=== PATIENT | female | born 1945 | race Caucasian/White ===

== ENCOUNTER 2017-02-14 12:58 | Emergency (ER) | payer MEDICARE, MEDICAID ==
--- NOTE | 2017-02-14 14:47 | PD ---
HPI . s/p fall and left lateral eye laceration Chief Complaint: Laceration/Skin Injury Time Seen by Provider: 13:50 Travel History International Travel<30 days: No Contact w/Intl Traveler<30days: No Traveled to known affect area: No History of Present Illness HPI 72-year-old female here status post fall earlier today at her senior living resident. She is past medical history significant for major depressive disorder , hypertension, COPD, dementia and history of stroke. According to the senior living notes patient was returning from [place] in a wheelchair and lean forward to pick an object off the floor when she fell forward. She hit her head sustaining a laceration above her left eye Steri-Strips were placed at the senior living. She was complaining about headache and sent to the emergency department for further evaluation. Patient tells me she was trying to open up her foot rests on the chair and slipped forward. She says there was a woman who was pushing her and she kept slipping forward, but the woman just kept pushing the wheelchair. Upon examining the patient she tells me that she no longer has a headache, but that she had one and it was earlier. She does have some tenderness near the laceration. She has no other pain. She denies any LOC. PFSH Social History Tobacco Use: No Allergies-Medications (Allergen,Severity, Reaction): Coded Allergies: No Known Allergies (Unverified , 02/14/17) Review of Systems General / Constitutional: No: Fever Eyes: No: Visual changes HENT: Positive: Headaches Cardiovascular: No: Chest Pain or Discomfort Respiratory: No: Shortness of Breath Gastrointestinal: No: Abdominal Pain Genitourinary: No: Dysuria Musculoskeletal: No: Pain Skin: Positive Other (laceration left lateral to eye), No Rash Neurologic: No: Weakness Psychiatric: No: Depression Endocrine: No: Polydipsia Hematologic/Lymphatic: No: Easy Bruising Physical Exam Narrative GENERAL: AAO x 3, no acute distress, Well-nourished, well-developed patient. SKIN: Warm and dry. No visible rashes or bruising. small superficial laceration lateral to left eye. about 4 mm HEAD: Normocephalic and atraumatic. EYES: No scleral icterus. No injection or drainage. EOM intact, PERRLA ENT: No nasal drainage noted. Mucous membranes pink. Airway patent. NECK: Supple, trachea midline. No JVD. CARDIOVASCULAR: Regular rate and rhythm without murmurs, gallops, or rubs. RESPIRATORY: Breath sounds equal bilaterally. No accessory muscle use. No rhonchi or rales. GASTROINTESTINAL: Abdomen soft, non-tender, nondistended. EXTREMITIES: No cyanosis or edema. decreased [employer] strength on left side. BACK: Nontender without obvious deformity. No CVA tenderness. PSYCH: AAO x 3, MDM Medical Decision Making Medical Screen Exam Complete: Yes Emergency Medical Condition: Yes Medical Record Reviewed: Yes Differential Diagnosis laceration, fall, syncope, head injury Narrative Course 72-year-old female here status post fall earlier today at her senior living resident. She is past medical history significant for major depressive disorder , hypertension, COPD, dementia and history of stroke. According to the senior living notes patient was returning from [place] in a wheelchair and lean forward to pick an object off the floor when she fell forward. She hit her head sustaining a laceration above her left eye Steri-Strips were placed at the senior living. She was complaining about headache and sent to the emergency department for further evaluation. Patient tells me she was trying to open up her foot rests on the chair and slipped forward. She says there was a woman who was pushing her and she kept slipping forward, but the woman just kept pushing the wheelchair. Upon examining the patient she tells me that she no longer has a headache, but that she had one and it was earlier. She does have some tenderness near the laceration. She has no other pain. She denies any LOC. Patient seen and examined. She does have a significant fall to the floor. There is some ecchymosis to the left lateral orbit. I've requested a medical bed and transfer. I repaired her laceration with a Steri-Strip. She will need CT scan of orbit to r/o fracture and also head as she hit it on the way down. tetanus ordered. Her disposition will be determined by the next provider. Procedures Procedure Narrative LACERATION LOCATION: face lateral to left eye LENGTH: 4 mm NUMBER OF STITCHES/BRITNEY: steri strip REPAIR: The area of the laceration was prepped with Betadine and sterilely draped. The wound was copiously irrigated and explored without evidence of foreign body, tendon injury or neurovascular injury. The wound was closed using a steri strip. This was a single layer repair. A sterile dressing was applied. The patient was advised to keep the dressing clean and dry. Patient tolerated the procedure well. Diagnosis Primary Impression: Fall Qualified Code: W19.XXXA - Fall, initial encounter Additional Impression: Laceration of face Qualified Code: S01.81XA - Laceration of face, initial encounter Additional Instructions: Keep area clean and dry. Use gauze as we discussed and change 1-2 times a day. Watch for signs of infection: fever, redness, swelling, warmth, pus or drainage , red streaks around the cut, and increased pain from the area. If you received a tetanus shot, you may experience tenderness at the injection site. This is normal. Condition: Stable Juli Bojorquez Feb 14, 2017 14:47
--- NOTE | 2017-02-14 14:59 | PD ---
Physical Exam Time Seen by Provider: 14:59 Narrative Patient initially seen and evaluated in triage. Please refer to his providers documentation. Data Data Last Documented VS Vital Signs Date Time Temp Pulse Resp B/P Pulse Ox O2 Delivery O2 Flow Rate FiO2 02/14/17 20:58 80 16 140/77 100 02/14/17 17:18 Room Air Orders Tetanus/Diphtheria Tox Adult (Tetanus/Di (02/14/17 15:00) Ct Brain W/O Iv Contrast(Rout) (02/14/17 ) Diet Heart Healthy (02/14/17 Dinner) MDM Medical Record Reviewed: Yes Supervised Visit with [facility]: No Differential Diagnosis Minor head injury versus facial contusion versus intracranial hemorrhage Narrative Course 72-year-old female presents to emergency department for evaluation after a fall out of her wheelchair. Patient has no complaints at this time. Small laceration lateral to the left eye is with Steri-Strips in place. Mild ecchymosis surrounding this. CT imaging of the brain is completed and shows no acute findings of the brain. 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 Patient is pleasant. She is without any acute focal deficit. She [facility]. Diagnosis Primary Impression: Fall Qualified Code: W19.XXXA - Fall, initial encounter Additional Impression: Laceration of face Qualified Code: S01.81XA - Laceration of face, initial encounter Referrals: Primary Care Physician Patient Instructions: General Instructions, Head Injury (ED) Additional Instruction: Keep area clean and dry. Use gauze as we discussed and change 1-2 times a day. Watch for signs of infection: fever, redness, swelling, warmth, pus or drainage , red streaks around the cut, and increased pain from the area. If you received a tetanus shot, you may experience tenderness at the injection site. This is normal. Med/Other Pt SpecificInfo: No Change to Meds Disposition: 01 DISCHARGE HOME Condition: Stable DossJeannette yates JEFFREY Feb 14, 2017 14:59
[2017-02-14] MEDS ORDERED: TETANUS/DIPHTHERIA TOXOID ADULT 0.5 ML VIAL IM ONE (15:00)
[2017-02-14] MEDS ORDERED: NUED20CA PO (15:46)
[2017-02-14] MEDS ORDERED: LEXA10TA PO (15:46)
[2017-02-14] MEDS ORDERED: MULTTAB62 PO (15:46)
[2017-02-14] MEDS ORDERED: [UNRECOGNIZED DRUG - CODE] PO (15:46)
[2017-02-14] MEDS ORDERED: NAME10TA PO (15:46)
[2017-02-14] MEDS ORDERED: VITA100018 PO (15:46)
[2017-02-14] MEDS ORDERED: ASPI1TAB91 PO (15:46)
[2017-02-14] MEDS ORDERED: SENN8.6T8 PO (15:46)
[2017-02-14 17:18] VITALS: BP 145/65; PULSE 69; RESP 18; O2SAT 100
--- NOTE | 2017-02-14 18:18 | RADRPT ---
EXAM DATE/TIME: 02/14/2017 16:46 [facility] COMPARISON: No previous studies available for comparison. INDICATIONS : Trauma; fall, laceration to left eyebrow. RADIATION DOSE: 47.17 CTDIvol (mGy) MEDICAL HISTORY : Stroke. SURGICAL HISTORY : Tonsillectomy. ENCOUNTER: Initial ACUITY: 1 day PAIN SCALE: 4/10 LOCATION: Left cranial TECHNIQUE: Multiple contiguous axial images were obtained of the head. Using automated exposure control and adj ustment of the mA and/or kV according to patient size, radiation dose was kept as low as reasonably a chievable to obtain optimal diagnostic quality images. FINDINGS: CEREBRUM: Is a prominent area of encephalomalacia involving the right medial frontal lobe extending from the co nvexity to highest convexity suggesting an old right TYRELL infarction. There is symmetric prominence o f the frontal horn of the lateral ventricles. There is a small lacunar infarct in the anterior limb of the left internal capsule. Physiologic calcification in the basal ganglia bilaterally. No eviden ce of acute blood products or mass effect. No extra-axial fluid. No evidence of acute infarction. POSTERIOR FOSSA: The cerebellum and brainstem are intact. The 4th ventricle is midline. The cerebellopontine angle i s unremarkable. EXTRACRANIAL: The visualized portion of the orbits is intact. SKULL: The calvaria is intact. No evidence of skull fracture. CONCLUSION: 1. No acute findings in the brain. 2. 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 Chance Fay MD on February 14, 2017 at 18:14 Board Certified Radiologist. This report was verified electronically.
[2017-02-14 20:58] VITALS: BP 140/77
== END 2017-02-14 21:00 | disposition home or self-care (01) ==
LOC: NEPA 12:58
DX: S01.81XA Laceration without foreign body of other part of head, initial encounter (principal); Z23 Encounter for immunization; Z86.73 Personal history of transient ischemic attack (TIA), and cerebral infarction without residual deficits; J44.9 Chronic obstructive pulmonary disease, unspecified; I10 Essential (primary) hypertension; W05.0XXA Fall from non-moving wheelchair, initial encounter; Y93.9 Activity, unspecified; Y92.129 Unspecified place in nursing home as the place of occurrence of the external cause; Y99.8 Other external cause status
CPT/HCPCS: 70450; 90471; 90714